=== PATIENT | male | born 1930 | race Caucasian/White ===

== ENCOUNTER → 2016-07-13 | Outpatient (CLI) | payer MEDICARE, OTHER ==
[~2016-07-13] MED LIST: ASPI81CH37 CHEW; DYAZ37.5 PO; LEVO112T2 PO; LISI10TA3 PO
[2016-07-13 10:23] LABS: AUTOMATED NEUTROPHIL # 6.3 TH/MM3 (1.8-7.7); BASOPHIL % 0.5 % (0.0-2.0); EOSINOPHIL # 0.1 TH/MM3 (0-0.4); EOSINOPHIL % 1.4 % (0.0-4.0); HEMATOCRIT 39.4 % (39.0-51.0); HEMO FLAGS DIFF FINAL; LYMPH % 13.1 % (9.0-44.0); LYMPHOCYTE # 1.1 TH/MM3 (1.0-4.8); MEAN CELL VOLUME 87.8 FL (80.0-100.0); MEAN CORPUSCULAR HEMOGLOBIN 29.3 PG (27.0-34.0); MEAN CORPUSCULAR HGB CONC 33.3 % (32.0-36.0); MONO % 9.2 % (0.0-8.0); NEUT % 75.8 % (16.0-70.0); PLATELET COUNT 250 TH/MM3 (150-450); RED BLOOD COUNT 4.49 MIL/MM3 (4.50-5.90); RED CELL DISTRIBUTION WIDTH 15.3 % (11.6-17.2); WHITE BLOOD COUNT 8.3 TH/MM3 (4.0-11.0)
[2016-07-13 10:32] LABS: INTERNATIONAL NORMALIZED RATIO 1.1 RATIO
== END ==
LOC: CLAB 09:26
PROVIDERS: ATTEND Family Medicine
DX: R16.0 Hepatomegaly, not elsewhere classified (principal)
CPT/HCPCS: 36415; 85025; 85610; 85730

== ENCOUNTER 2016-07-14 08:24 | Day surgery (SDC) | payer MEDICARE, OTHER ==
[~2016-07-14] VITALS: Ht 172.7 cm; Wt 111.0 kg
[2016-07-14] VITALS (8 sets, daily range): BP systolic 148–174; BP diastolic 72–98; PULSE 58–75; RESP 16–18; TEMP 97.4–98.8; O2SAT 93–98
[2016-07-14] MEDS ORDERED: SODIUM CHLOR 0.9% 1000 ML IV SCH (09:00)
[2016-07-14] MEDS ORDERED: LIDOCAINE 1%/EPINEPHrine 1:100,000 SOLN 20 ML VIAL ONE (11:32)
[2016-07-14] MEDS ORDERED: MIDAZOLAM HCL 5 MG/5 ML VIAL ONE (11:48)
[2016-07-14] MEDS ORDERED: fentaNYL CITRATE 250 MCG/5 ML AMP ONE (11:49)
--- NOTE | 2016-07-14 13:39 | RADRPT ---
EXAM DATE/TIME: 07/14/2016 12:09 [place] COMPARISON: CT NEEDLE BIOPSY LIVER, June 14, 2016, 10:37. INDICATIONS : Liver mass. SEDATION TIME: 30 minutes BIOPSY SITE: Right liver MEDICATION(S): 1.) 1 mg midazolam (Versed) IV 2.) 75 mcg fentanyl (Sublimaze) IV DEVICE(S): 1.) 18 gauge BioPince needle MEDICAL HISTORY : Chronic obstructive pulmonary disease. Hypertension. Gastroesophageal reflux disease. Chronic kidney disease, SURGICAL HISTORY : Appendectomy. Cholecystectomy. ENCOUNTER: Initial ACUITY: 1 day PAIN SCORE: 0/10 LOCATION: Right liver A total of one core specimen(s) were obtained and sent to the laboratory for pathologic evaluation. PROCEDURE: 1. CT guided liver biopsy. 2. Conscious sedation with continuous EKG and oximetry monitoring. Prior to the procedure informed consent was obtained. Any appropriate prior imaging studies were rev iewed. The site was prepped in a sterile fashion. Full sterile technique was used, including cap, mask, nikki rile gloves and gown and a large sterile sheet. Hand hygiene and 2% chlorhexidine and/or betadine/al cohol prep was utilized per protocol for cutaneous antisepsis. The skin and subcutaneous tissues wer e infiltrated with local anesthetic solution. With CT guidance the previously identified target was localized. An 18 gauge core was obtained from the mass. Follow-up CT scan reveals no hemorrhage. The patient tolerated the procedure well and there were no complications. The patient was returned to the Radiology Outpatient Unit in stable condition. CONCLUSION: Uncomplicated CT guided biopsy. Preliminary interpretation is normal hepatis sites. If this biopsy proved to be normal liver again e xpect the liver spleen scan would be of benefit. Vici colloid is taken up by functioning hepatocy joslyn and would exclude malignancy. Ko Recinos MD FACR on July 14, 2016 at 13:35 Board Certified Radiologist. This report was verified electronically.
[2016-07-14] MEDS ORDERED: PILL SPLITTER OTHER PRN (14:00)
[2016-07-14] MEDS ORDERED: HYDROmorphone HCL 2 MG TAB PO PRN (14:00)
== END 2016-07-14 16:55 | disposition home or self-care (01) ==
LOC: HRAD 08:24 → HRIP 08:25 → EDSTATUS 09:00 → HRAD 16:55
PROVIDERS: ATTEND Family Medicine
DX: R16.0 Hepatomegaly, not elsewhere classified (principal); I12.9 Hypertensive chronic kidney disease with stage 1 through stage 4 chronic kidney disease, or unspecified chronic kidney disease; N18.9 Chronic kidney disease, unspecified; K21.9 Gastro-esophageal reflux disease without esophagitis; J44.9 Chronic obstructive pulmonary disease, unspecified
CPT/HCPCS: 47000; 77012; 88307; 88333; 88341; 88342; J2250; J3010; J7030